=== PATIENT | male | born 1985 | race Caucasian/White ===

== ENCOUNTER 2018-11-17 10:26 | Emergency (ER) | payer MEDICAID ==
[2018-11-17 10:35] VITALS: BP 124/73
--- NOTE | 2018-11-17 10:40 | EDPHY ---
H & P Stated Complaint: Injury to right knee and wilder. Source: Patient Exam Limitations: No limitations - Personal History Current Tetanus Diphtheria and Acellular Pertussis (TDAP): Yes - Medical/Surgical History Hx Asthma: No Hx Chronic Respiratory Disease: No Hx Diabetes: No Hx Cardiac Disease: No Hx Renal Disease: No Hx Cirrhosis: No Hx Alcoholism: No Hx HIV/AIDS: No Hx Splenectomy or Spleen Trauma: No Other PMH: Denies - Social History Smoking Status: Never smoked Time Seen by Provider: 11/17/18 10:37 HPI/ROS: HPI: This is a 33-year-old male who presents with Chief Complaint: Injury to right knee and wilder Location: Right knee Quality: Injury Duration: 2 days ago Signs and Symptoms: No bleeding, no radiation, no numbness, no weakness, no tingling, no incontinence, + decreased range of motion, + swelling, + pain, no fever Timing: Acute Severity: 12/06 Context: Patient was skiing 2 days ago when clipped the front of his ski on an edge and twisted his right knee inward and then hyperextended it. He reports that he felt immediate, constant, moderate pain in the anterior knee but was able to continue to ski down the hill. Since that time he has tried to immobilize it and ice it several times per day. He reports pain in the lateral anterior and medial portions with moderate swelling and increased pain with flexion. It is difficult to walk due to the pain. Denies LOC/head injury/neck pain/dizziness/nausea/vomiting/amnesia. Went to a thrift store and picked up crutches. Modifying Factors: See above Comment: ROS: A comprehensive 10 system review of systems is otherwise negative aside from elements mentioned in the history of present illness. MEDICAL/SURGICAL/SOCIAL HISTORY: Medical history: Generally healthy. Does not take any regular medications. Surgical history: Denies Social history: Employed. Nonsmoker. Drinks alcohol socially. CONSTITUTIONAL: Physically fit adult white male, awake and alert, no obvious distress HEENT: Atraumatic and normocephalic, PERRL, EOMI. Nares patent; no rhinorrhea; no nasal mucosal edema. Tympanic membranes clear. Oropharynx clear, no exudate and moist pink mucosa. Airway patent. No lymphadenopathy. No meningismus. Cardiovascular: Normal S1/S2, regular rate, regular rhythm, without murmur rub or gallop. PULMONARY/CHEST: Symmetrical and nontender. Clear to auscultation bilaterally. Good air movement. No accessory muscle usage. ABDOMEN: Soft, nondistended, nontender, no rebound, no guarding, no peritoneal signs, no masses or organomegaly. No CVAT. EXTREMITIES: 2/2 pulses, strength 5/5, no deformities, no clubbing, no cyanosis or edema. Right KNEE: Mild effusion, moderate medial and lateral joint line tenderness, full extension to 180, flexion to 90. Moderate pain with varus and valgus exam. Mild pain with anterior drawer or posterior drawer test. Extensor mechanism intact. NEUROLOGICAL: no focal neuro deficits. GCS 15. SKIN: Warm and dry, no erythema. no rash. Good capillary refill. (Radha Reyes) Constitutional: Initial Vital Signs Temperature (C) 36.7 C 11/17/18 10:32 Heart Rate 110 H 11/17/18 10:32 Respiratory Rate 16 11/17/18 10:32 Blood Pressure 124/73 H 11/17/18 10:32 O2 Sat (%) 96 11/17/18 10:32 O2 Delivery Mode Room Air Allergies/Adverse Reactions: No Known Allergies Allergy (Unverified 11/17/18 10:35) Home Medications: Medication Instructions Recorded oxyCODONE/APAP 5/325 [Percocet 1 - 2 tab PO Q4H PRN #12 tab 11/17/18 5/325 (*)] Medical Decision Making - Diagnostics Imaging Results: Imaging Impressions Knee X-Ray 11/17/18 10:41 Impression: Probable nondisplaced lateral tibial metaphyseal fracture with extension to the tibial plateau. Findings discussed with Radha Reyes 11/17/2018 at 11:04. Procedures: Procedure: Splint placement. A right knee immobilizer was applied and crutches properly fit to the patient by the tech. After application of the splint I returned and re-examined the patient. The splint was adequately immobilizing the joint and distal to the splint the patient's circulation and sensation was intact. (Radha Reyes) ED Course/Re-evaluation: Right knee x-ray ordered and shows no jg fracture, dislocation. There is a lucency on the lateral tibial plateau that is irregular and fracture is suspected. Suspect internal derangement of multiple areas along with tibial metaphyseal/ plateau fracture Given Percocet and prescription for same Placed in knee immobilizer, crutches properly fit by building maintenance technician and orthopedic follow-up for likely MRI/surgery No signs of neurovascular compromise/tenting of skin/compartment syndrome/ extremities and joints examined above and below area of concern and are neurovascularly intact. This patient was seen under the supervision of my secondary supervising physician. I evaluated and cared for this patient independently. (Radha Reyes) I did not see this patient while he was in the emergency department. However his care was discussed with the PA while the patient was in the department. I agree with treatment plan and management (Rahul Smith) Differential Diagnosis: Knee injury while [] including but not limited to fracture, ACL injury, contusion, muscular strain, and meniscus injury. (Radha Reyes) - Data Points Medications Given: Discontinued Medications Oxycodone/Acetaminophen (Percocet 5/325) 1 tab PO EDNOW ONE Stop: 11/17/18 10:42 Last Admin: 11/17/18 11:08 Dose: Not Given Departure - Departure Disposition: Home, Routine, Self-Care Clinical Impression: Metaphyseal fracture of proximal end of tibia Acute traumatic internal derangement of right knee Qualifiers: Encounter type: initial encounter Qualified Code(s): S83.104A - Unspecified dislocation of right knee, initial encounter Tibial plateau fracture, right Qualifiers: Encounter type: initial encounter Fracture type: closed Qualified Code(s): S82.141A - Displaced bicondylar fracture of right tibia, initial encounter for closed fracture Condition: Good Instructions: Knee Sprain (ED), Leg Fracture (ED), Knee Immobilizer (ED) Additional Instructions: Wear the knee immobilizer while out of bed until seen by Orthopedics. Use crutches to aid ambulation. Start with toe-touch weight-bearing status. Take Tylenol 650 mg every 4 hours and/or Ibuprofen 600 mg every 8 hours with food as needed for pain. Use Percocet every 6 hours as needed for severe/break through pain. Do not use Tylenol and Percocet concomitantly. Apply ice for 30 minutes at a time; 2-3 times per day for the next 1-2 days. Follow up with Orthopedics in 5-7 days at which time they will evaluate and recommend with you if MRI versus surgery is indicated. Referrals: Perfecto Vines MD [Medical Doctor] - As per Instructions Prescriptions: oxyCODONE/APAP 5/325 [Percocet 5/325 (*)] 1 - 2 tab PO Q4H PRN #12 tab PRN Reason: Pain, Severe
[2018-11-17] MEDS ORDERED: OXYCODONE/APAP 5/325 TAB PO ONE (10:41)
== END 2018-11-17 11:32 | disposition home or self-care (01) ==
DX: S89.091A Other physeal fracture of upper end of right tibia, initial encounter for closed fracture (principal); V00.328A Other snow-ski accident, initial encounter; Y93.23 Activity, snow (alpine) (downhill) skiing, snowboarding, sledding, tobogganing and snow tubing; Y92.828 Other wilderness area as the place of occurrence of the external cause
CPT/HCPCS: L1830